=== PATIENT | male | born 1965 | race African-American/Black ===

== ENCOUNTER 2019-09-08 11:44 | Inpatient (IN) ==
[2019-09-08] MEDS ORDERED: hydrALAZINE 20 MG/1 ML VIAL ONE (13:17)
[2019-09-08 13:26] LABS: Eosinophils # 0.1 10*3/uL (0.0-0.87); Eosinophils % 1.2 % (0.00-10.9); Hematocrit 36.5 VOL% (42.0-52.0); Hemoglobin 11.8 GM/DL (14.0-18.0); Immature Granulocytes % 0.5 %; Immature Granulocytes Absolute 0.02 #; Lymphocytes # 1.1 10*3/uL (1.4-4.0); Mean Corpuscular HGB Conc 32.3 GM/DL (32-36); Mean Corpuscular Volume 96.6 FL (87-102); Mean Platelet Volume 10.9 FL (9.6-12.0); Monocytes % 13.2 % (1.7-12.7); Neutrophils % 56.1 % (38.7-73.9); Platelet Count 179 T/CUMM (130-400); Red Blood Count 3.78 MC/CUMM (3.8-5.5); Red Cell Distribution Width 13.8 % (9.3-17.3)
[2019-09-08 13:39] LABS: Apearance,Urine CLEAR (Clear); Bilirubin,Urine Negative (Negative); Blood, Urine Small mg/dL (Negative); Glucose,Urine (UA) Negative (Negative); Ketones,Urine Negative (Negative); Mucus,Urine Occasional /LPF (Occasional); Nitrite,Urine Negative (Negative); Protein,Urine 30 MG/DL; RBC,Urine 3 /HPF (0-4); Squamous Epithelial Cell,Urine Occasional /HPF (0-10); Urine Color Yellow (Yellow); Urine Specific Gravity 1.014 (1.001-1.035); Urine Urobilinogen < 2.0 EU/DL (0.2-1.0); WBC,Urine <1 /HPF (0-6)
[2019-09-08] MEDS ORDERED: hydrALAZINE 20 MG/1 ML VIAL IV STA (13:40)
[2019-09-08 13:42] LABS: PT Patient Result 10.9 SECS (9.8-11.9); Partial Thromboplastin Time 27.7 SECS (23.9-33.8)
[2019-09-08 14:01] LABS: Barbiturates Screen,Urine Negative (Negative); Benzodiazepines Screen,Urine Negative (Negative); Cannabinoid Screen,Urine Positive (Negative); Glucose 68 MG/DL (74-106); Opiate Screen,Urine Negative (Negative); Phencyclidine Screen,Urine Negative (Negative)
[2019-09-08 14:04] LABS: Calcium 9.3 MG/DL (8.5-10.1)
[2019-09-08 14:05] LABS: Alanine Aminotransferase 38 U/L (16-61); Albumin 3.7 G/DL (3.4-5.0); Alkaline Phosphatase 121 U/L (45-117); Aspartate Amino Transferase 52 U/L (0-37); Bilirubin,Total < 0.39 MG/DL (0.2-1.0); Blood Urea Nitrogen 20 MG/DL (7-18); Estimated Glom Filtration Rate 85 ML/MIN; Osmolality,Calculated 279.4 MOS/KG (273-304); Total Protein 8.5 G/DL (6.4-8.3)
[2019-09-08] MEDS ORDERED: ONDANSETRON 4 MG/2 ML VIAL IV PRN (15:23)
[2019-09-08] MEDS ORDERED: DEXTROSE 50% 25 GM/50 ML VIAL IV PRN (15:23)
[2019-09-08] MEDS ORDERED: GLUCAGON 1 MG VIAL IM PRN (15:23)
[2019-09-08] MEDS: LABETALOL 20 MG/4 ML SYRINGE IV PRN (16:03)
[2019-09-08] MEDS ORDERED: LABETALOL 20 MG/4 ML SYRINGE IV ONE (17:40)
[2019-09-08] MEDS: amLODIPine 5 MG TABLET PO SCH (17:55)
[2019-09-08] MEDS: NICOTINE 14 MG/24 HR PATCH TRANSDERM SCH (17:55)
[2019-09-08] MEDS: lisinopriL 10 MG TABLET PO SCH (21:02)
[2019-09-08] MEDS: chlordiazePOXIDE 25 MG CAPSULE PO PRN (23:44)
[2019-09-09 05:47] LABS: Basophils % 0.4 % (0.0-0.8); Eosinophils % 0.9 % (0.00-10.9); Hematocrit 38.4 VOL% (42.0-52.0); Hemoglobin 12.7 GM/DL (14.0-18.0); Immature Granulocytes % 0.2 %; Immature Granulocytes Absolute 0.01 #; Lymphocytes # 0.9 10*3/uL (1.4-4.0); Mean Corpuscular HGB Conc 33.1 GM/DL (32-36); Mean Corpuscular Volume 94.3 FL (87-102); Mean Platelet Volume 11.3 FL (9.6-12.0); Monocytes % 11.9 % (1.7-12.7); Neutrophils % 66.6 % (38.7-73.9); Platelet Count 185 T/CUMM (130-400); Red Blood Count 4.07 MC/CUMM (3.8-5.5); Red Cell Distribution Width 13.5 % (9.3-17.3); White Blood Count 4.5 T/CUMM (4-12)
[2019-09-09 06:10] LABS: Risk Ratio 2.33; VLDL CHOLESTEROL 18.2 MG/DL
[2019-09-09 06:25] LABS: Albumin 3.7 G/DL (3.4-5.0); Calcium 9.9 MG/DL (8.5-10.1); Total Protein 9.1 G/DL (6.4-8.3)
[2019-09-09] MEDS ORDERED: MAGNESIUM SULF RIDER 4 GM in PREMIX 1 EACH IV PRN (06:53)
[2019-09-09] MEDS ORDERED: MAGNESIUM SULF RIDER 2 GM in PREMIX 1 EACH IV PRN (06:53)
[2019-09-09] MEDS ORDERED: MULTIVITAMIN (CENTRUM) TABLET PO SCH (09:00)
[2019-09-09] MEDS ORDERED: PANTOPRAZOLE 40 MG TABLET PO SCH (09:00)
[2019-09-09] MEDS: ASPIRIN EC 81 MG TABLET PO SCH (09:04)
[2019-09-09] MEDS: NICOTINE 14 MG/24 HR PATCH TRANSDERM SCH (09:04)
[2019-09-09] MEDS: THIAMINE 100 MG TABLET PO SCH (09:04)
[2019-09-09] MEDS: FOLIC ACID 1 MG TABLET PO SCH (09:04)
[2019-09-09] MEDS: amLODIPine 5 MG TABLET PO SCH (09:04)
[2019-09-09] MEDS: lisinopriL 10 MG TABLET PO SCH (09:04)
[2019-09-09] MEDS ORDERED: diphenhydrAMINE 50 MG/1 ML VIAL IV ONE (12:04)
[2019-09-09] MEDS ORDERED: methylPREDNISolone SOD SUC 125 MG/2 ML VIAL IV ONE ×2 (12:05→12:13)
[2019-09-09] MEDS ORDERED: FAMOTIDINE 20 MG/2 ML VIAL IV ONE ×2 (12:14→13:00)
[2019-09-09] MEDS ORDERED: MAGNESIUM SULF RIDER 2 GM in PREMIX 1 EACH IV ONE (12:29)
[2019-09-09] MEDS ORDERED: SODIUM CHLORIDE 0.9% 1,000 ML IV PRN (12:30)
[2019-09-09] MEDS ORDERED: diphenhydrAMINE 50 MG/1 ML VIAL IV SCH (18:00)
[2019-09-09] MEDS: ATORVASTATIN 40 MG TABLET PO SCH (20:07)
[2019-09-09] MEDS: chlordiazePOXIDE 25 MG CAPSULE PO PRN (20:07)
[2019-09-09] MEDS ORDERED: ATORVASTATIN 40 MG TABLET PO SCH (21:00)
[2019-09-09] MEDS: FAMOTIDINE 20 MG/2 ML VIAL IV SCH (23:33)
[2019-09-09] MEDS: methylPREDNISolone SOD SUC 40 MG/1 ML VIAL IV SCH (23:34)
[2019-09-10 05:25] LABS: Hematocrit 41.1 VOL% (42.0-52.0); Hemoglobin 13.5 GM/DL (14.0-18.0); Immature Granulocytes % 0.4 %; Immature Granulocytes Absolute 0.02 #; Lymphocytes # 0.4 10*3/uL (1.4-4.0); Lymphocytes % 7.8 % (21.2-54.2); Mean Corpuscular HGB Conc 32.8 GM/DL (32-36); Mean Corpuscular Volume 94.5 FL (87-102); Mean Platelet Volume 11.9 FL (9.6-12.0); Monocytes % 2.7 % (1.7-12.7); Neutrophils % 89.1 % (38.7-73.9); Platelet Count 201 T/CUMM (130-400); Red Blood Count 4.35 MC/CUMM (3.8-5.5); Red Cell Distribution Width 13.4 % (9.3-17.3); White Blood Count 5.6 T/CUMM (4-12)
[2019-09-10 05:52] LABS: Albumin 3.8 G/DL (3.4-5.0); Bilirubin,Total 1.1 MG/DL (0.2-1.0); Calcium 10.3 MG/DL (8.5-10.1); Osmolality,Calculated 271.2 MOS/KG (273-304); Total Protein 9.4 G/DL (6.4-8.3)
[2019-09-10] MEDS: FOLIC ACID 1 MG TABLET PO SCH (08:21)
[2019-09-10] MEDS: THIAMINE 100 MG TABLET PO SCH (08:21)
[2019-09-10] MEDS: NICOTINE 14 MG/24 HR PATCH TRANSDERM SCH (08:21)
[2019-09-10] MEDS: ASPIRIN EC 81 MG TABLET PO SCH (08:21)
[2019-09-10] MEDS: amLODIPine 5 MG TABLET PO SCH (08:21)
[2019-09-10] MEDS ORDERED: lisinopriL 10 MG TABLET PO SCH (09:00)
[2019-09-10] MEDS: LABETALOL 20 MG/4 ML SYRINGE IV PRN (10:14)
[2019-09-10] MEDS: methylPREDNISolone SOD SUC 40 MG/1 ML VIAL IV SCH (11:54)
[2019-09-10] MEDS: FAMOTIDINE 20 MG/2 ML VIAL IV SCH (11:54)
[2019-09-10] MEDS: ATORVASTATIN 40 MG TABLET PO SCH (21:41)
[2019-09-11] MEDS: FAMOTIDINE 20 MG/2 ML VIAL IV SCH ×2 (00:33→11:17)
[2019-09-11] MEDS: methylPREDNISolone SOD SUC 40 MG/1 ML VIAL IV SCH ×2 (00:35→11:17)
[2019-09-11 05:41] LABS: Basophils % 0.1 % (0.0-0.8); Hematocrit 38.2 VOL% (42.0-52.0); Hemoglobin 12.6 GM/DL (14.0-18.0); Immature Granulocytes % 0.6 %; Immature Granulocytes Absolute 0.06 #; Lymphocytes # 0.4 10*3/uL (1.4-4.0); Mean Corpuscular Volume 95.5 FL (87-102); Mean Platelet Volume 11.5 FL (9.6-12.0); Monocytes % 4.7 % (1.7-12.7); Neutrophils % 90.6 % (38.7-73.9); Platelet Count 171 T/CUMM (130-400); Red Cell Distribution Width 13.2 % (9.3-17.3); White Blood Count 10.1 T/CUMM (4-12)
[2019-09-11 06:08] LABS: Calcium 9.5 MG/DL (8.5-10.1)
[2019-09-11 06:15] LABS: Anisocytosis Slight; Band Neutrophils 3 % (0-10); Lymphocytes 5 % (20-55); Macrocytosis 1+; Platelet Estimate Normal; Segmented Neutrophils 85 % (50-85); Total Cells Counted 100
[2019-09-11] MEDS: FOLIC ACID 1 MG TABLET PO SCH (08:36)
[2019-09-11] MEDS: NICOTINE 14 MG/24 HR PATCH TRANSDERM SCH (08:36)
[2019-09-11] MEDS: ASPIRIN EC 81 MG TABLET PO SCH (08:36)
[2019-09-11] MEDS: THIAMINE 100 MG TABLET PO SCH (08:36)
[2019-09-11] MEDS: amLODIPine 5 MG TABLET PO SCH (09:42)
[2019-09-11] MEDS: ATORVASTATIN 40 MG TABLET PO SCH (21:23)
[2019-09-12] MEDS: FAMOTIDINE 20 MG/2 ML VIAL IV SCH ×2 (00:05→11:21)
[2019-09-12] MEDS: methylPREDNISolone SOD SUC 40 MG/1 ML VIAL IV SCH ×2 (00:07→11:22)
[2019-09-12 05:36] LABS: Basophils % 0.1 % (0.0-0.8); Hematocrit 37.2 VOL% (42.0-52.0); Hemoglobin 12.3 GM/DL (14.0-18.0); Immature Granulocytes % 0.2 %; Immature Granulocytes Absolute 0.02 #; Lymphocytes # 0.4 10*3/uL (1.4-4.0); Lymphocytes % 4.6 % (21.2-54.2); Mean Corpuscular HGB Conc 33.1 GM/DL (32-36); Mean Corpuscular Volume 95.6 FL (87-102); Mean Platelet Volume 12.3 FL (9.6-12.0); Monocytes % 5.4 % (1.7-12.7); Neutrophils % 89.7 % (38.7-73.9); Platelet Count 176 T/CUMM (130-400); Red Blood Count 3.89 MC/CUMM (3.8-5.5); Red Cell Distribution Width 13.5 % (9.3-17.3); White Blood Count 8.5 T/CUMM (4-12)
[2019-09-12 05:57] LABS: Lymphocytes 3 % (20-55); Platelet Estimate Adequate; Segmented Neutrophils 92 % (50-85); Total Cells Counted 100
[2019-09-12 05:58] LABS: Hypochromasia 1+
[2019-09-12 06:04] LABS: Calcium 9.8 MG/DL (8.5-10.1)
[2019-09-12] MEDS: NICOTINE 14 MG/24 HR PATCH TRANSDERM SCH (10:03)
[2019-09-12] MEDS: THIAMINE 100 MG TABLET PO SCH (10:04)
[2019-09-12] MEDS: FOLIC ACID 1 MG TABLET PO SCH (10:05)
[2019-09-12] MEDS: amLODIPine 5 MG TABLET PO SCH (10:05)
[2019-09-12] MEDS: ASPIRIN EC 81 MG TABLET PO SCH (10:09)
[2019-09-12] MEDS: ATORVASTATIN 40 MG TABLET PO SCH (22:00)
[2019-09-13 07:32] VITALS: BP 167/81
[2019-09-13] MEDS: NICOTINE 14 MG/24 HR PATCH TRANSDERM SCH (08:19)
[2019-09-13] MEDS: FOLIC ACID 1 MG TABLET PO SCH (08:20)
[2019-09-13] MEDS: amLODIPine 5 MG TABLET PO SCH (08:20)
[2019-09-13] MEDS: THIAMINE 100 MG TABLET PO SCH (08:20)
[2019-09-13] MEDS: ASPIRIN EC 81 MG TABLET PO SCH (08:20)
== END 2019-09-13 10:05 | disposition home or self-care (01) | DRG 65 ==
LOC: N.ED 11:44 → N.EDINP 11:44 → N.TELES 16:06 → N.ICU 09-09 12:25 → SUATTDRO 09-09 12:27 → N.TELEN 09-10 13:25
PROVIDERS: ADMIT Hospitalist; ATTEND Hospitalist